=== PATIENT | female | born 1985 | race Caucasian/White ===

== ENCOUNTER 2018-06-23 16:43 | Outpatient (CLI) | payer MEDICAID | END 2018-06-23 18:21 | disposition home or self-care (01) | LOC: OBT 16:43 → L-D 16:44 → OBT 18:21 | DX: O76 Abnormality in fetal heart rate and rhythm complicating labor and delivery (principal) | CPT/HCPCS: 76815; 76818 ==

== ENCOUNTER 2018-07-02 00:45 | Inpatient (IN) | payer MEDICAID ==
[2018-07-02] MEDS ORDERED: LACTATED RINGER'S 1,000 ML IV (01:32)
[2018-07-02 01:33] LABS: ADD UMIC NO; UR ASCORBIC ACID NEGATIVE (NEGATIVE); UR BILIRUBIN (Dip) NEGATIVE (NEGATIVE); UR BLOOD (Dip) NEGATIVE (NEGATIVE); UR CLARITY CLEAR (CLEAR); UR COLOR YELLOW (YELLOW); UR GLUCOSE (Dip) NEGATIVE (NEGATIVE); UR KETONES (Dip) TRACE mg/dL (NEGATIVE); UR LEUKOCYTE ESTERASE (Dip) NEGATIVE Leu/ul (NEGATIVE); UR NITRITE (Dip) NEGATIVE (NEGATIVE); UR SPECIFIC GRAVITY (Dip) 1.014 (1.003-1.030); UR TOTAL PROTEIN (Dip) NEGATIVE (NEGATIVE); UR UROBILINOGEN (Dip) NEGATIVE (NEGATIVE)
[2018-07-02 01:46] LABS: ADD MAN DIFF? NO
[2018-07-02 01:48] LABS: WHITE BLOOD COUNT 9.7 10^3/ul (4.8-10.8)
[2018-07-02 01:48] LABS: BASOPHILS % 0.3 % (0.0-2.0); EOSINOPHILS # 0.1 10^3/ul (0.0-0.5); EOSINOPHILS % 0.7 % (0.0-7.0); HEMATOCRIT 37.2 % (37.0-47.0); HEMOGLOBIN 12.5 g/dl (12.0-16.0); MEAN CORPUSCULAR HEMOGLOBIN 31.7 pg (29.0-33.0); MEAN CORPUSCULAR HGB CONC 33.6 g/dl (32.0-37.0); MEAN CORPUSCULAR VOLUME 94.4 fl (82.0-101.0); MEAN PLATELET VOLUME 10.5 fl (7.4-10.4); MONOCYTE # 0.6 10^3/ul (0.3-0.9); MONOCYTES % 5.8 % (0.0-11.0); NUCLEATED RED BLOOD CELLS% 0.2 /100WBC (0.0-0.0); PLATELET COUNT 228 10^3/UL (140-415); RED BLOOD COUNT 3.94 10^6/ul (4.20-5.40); RED CELL DISTRIBUTION WIDTH 15.6 % (11.5-14.5)
[2018-07-02] MEDS ORDERED: IBUPROFEN 600 MG TAB PO (02:00)
[2018-07-02] MEDS ORDERED: CARBOPROST 250 MCG INJ IM ×2 (02:00→06:00)
[2018-07-02] MEDS ORDERED: MISOPROSTOL 200 MCG TAB PR ×2 (02:00→06:00)
[2018-07-02] MEDS ORDERED: METHYLERGONOVINE 0.2 MG INJ IM ×2 (02:00→06:00)
[2018-07-02] MEDS ORDERED: BUTORPHANOL 2 MG INJ IV (02:00)
[2018-07-02] MEDS ORDERED: OXYTOCIN 30 UNITS/LR 500 ML IV (02:00)
[2018-07-02] MEDS ORDERED: BUTORPHANOL 1 MG INJ IV (02:00)
[2018-07-02] MEDS ORDERED: LIDOCAINE 1% (MPF) 30 ML INJ INJ (02:00)
[2018-07-02] MEDS: LACTATED RINGER'S 1,000 ML IV (02:04)
[2018-07-02 02:09] LABS: INR 0.96; PROTIME 12.9 Sec (11.9-14.9)
[2018-07-02 02:10] LABS: PARTIAL THROMBOPLASTIN TIME 26.9 Sec (23.0-35.0)
[2018-07-02] MEDS: OXYTOCIN 30 UNITS/LR 500 ML IV ×3 (02:44→06:41)
[2018-07-02] MEDS: MINERAL OIL LIGHT 10 ML VIAL TOP (02:58)
[2018-07-02 04:20] LABS: HEPATITIS B SURFACE ANTIGEN NEGATIVE (NEGATIVE)
[2018-07-02] MEDS ORDERED: ZOLPIDEM 5 MG TAB PO (06:00)
[2018-07-02] MEDS ORDERED: OXYCODONE/ASPIRIN (4.88/325) TAB PO ×2 (06:00)
[2018-07-02] MEDS: IBUPROFEN 600 MG TAB PO ×4 (06:21→23:57)
[2018-07-02] MEDS: WITCH HAZEL/GLYCERIN PAD PR (09:43)
[2018-07-02] MEDS: SENNA/DOCUSATE NA (8.6MG/50MG) TAB PO ×2 (09:43→21:15)
[2018-07-02] MEDS: BENZOCAINE 20% 56 ML SPRAY TOP (09:43)
[2018-07-02] MEDS: LANOLIN HPA 1 PKT TOP (09:43)
[2018-07-02 18:08] LABS: RAPID PLASMA REAGIN NONREACTIVE (NR)
[2018-07-03] MEDS: IBUPROFEN 600 MG TAB PO ×4 (05:39→23:40)
[2018-07-03 09:15] LABS: ADD MAN DIFF? NO
[2018-07-03 09:19] LABS: BASOPHILS % 0.3 % (0.0-2.0); EOSINOPHILS # 0.1 10^3/ul (0.0-0.5); EOSINOPHILS % 0.8 % (0.0-7.0); HEMATOCRIT 35.8 % (37.0-47.0); HEMOGLOBIN 11.8 g/dl (12.0-16.0); LYMPHOCYTES # 1.3 10^3/ul (0.8-2.9); LYMPHOCYTES % 18.8 % (15.0-51.0); MEAN CORPUSCULAR HEMOGLOBIN 32.2 pg (29.0-33.0); MEAN CORPUSCULAR VOLUME 97.8 fl (82.0-101.0); MEAN PLATELET VOLUME 10.3 fl (7.4-10.4); MONOCYTE # 0.6 10^3/ul (0.3-0.9); NEUTROPHIL # 4.6 10^3/ul (1.6-7.5); NEUTROPHILS % 69.7 % (39.0-77.0); PLATELET COUNT 192 10^3/UL (140-415); RED BLOOD COUNT 3.66 10^6/ul (4.20-5.40)
[2018-07-03 09:19] LABS: WHITE BLOOD COUNT 6.6 10^3/ul (4.8-10.8)
[2018-07-03] MEDS: SENNA/DOCUSATE NA (8.6MG/50MG) TAB PO ×2 (11:21→21:37)
[2018-07-04] MEDS: IBUPROFEN 600 MG TAB PO ×2 (05:48→11:20)
[2018-07-04] MEDS: DIPHTH/TET/ACEL PERTUSS (ADULT) 0.5 ML VIAL IM* (09:00)
[2018-07-04] MEDS: SENNA/DOCUSATE NA (8.6MG/50MG) TAB PO (11:20)
== END 2018-07-04 13:00 | disposition home or self-care (01) | DRG 807 ==
LOC: OBT 00:45 → L-D 00:45 → OBT 01:20 → L-D 01:20 → PP1 05:25
PROC: 10E0XZZ Delivery of Products of Conception, External Approach (ICD-10-PCS; principal; 2018-07-02)
DX: O80 Encounter for full-term uncomplicated delivery (principal); Z37.0 Single live birth; Z3A.37 37 weeks gestation of pregnancy
CPT/HCPCS: 81003; 85025; 85610; 85730; 86592; 86850; 86900; 86901; 87340